=== PATIENT | female | born 1960 | race Caucasian/White ===

== ENCOUNTER 2022-09-22 13:08 | Emergency (ER) | payer OTHER ==
[2022-09-22 15:02] VITALS: RESP 18; BMI 19.1
[2022-09-22] MEDS ORDERED: ONDANSETRON *ODT* 4 MG TABLET SL ONE (15:46)
[2022-09-22] MEDS ORDERED: ONDANSETRON *ODT* 4 MG TABLET ONE (16:01)
[2022-09-22 23:09] VITALS: BP 129/81; PULSE 75; TEMP 98.9
== END 2022-09-22 23:09 | disposition home or self-care (01) ==
LOC: JCOVINFU 13:08 → JER 13:08
DX: U07.1 COVID-19 (principal)
CPT/HCPCS: 99283-25; Q0162